=== PATIENT | male | born 1995 | race African-American/Black ===

== ENCOUNTER 2018-02-04 23:35 | Emergency (ER) | payer SELFPAY ==
[~2018-02-04] VITALS: Ht 182.9 cm; Wt 143.3 kg
[2018-02-04 23:51] VITALS: Ht 182.9 cm; Wt 143.3 kg
[2018-02-05 02:52] VITALS: BP 131/74
== END 2018-02-05 02:52 | disposition home or self-care (01) ==
LOC: ED 23:35
DX: R11.10 Vomiting, unspecified (principal); R19.7 Diarrhea, unspecified; J34.89 Other specified disorders of nose and nasal sinuses; R05 Cough; R10.32 Left lower quadrant pain; R51 Headache
CPT/HCPCS: Q0162

== ENCOUNTER 2018-05-13 12:20 | Emergency (ER) | payer SELFPAY ==
[~2018-05-13] VITALS: Ht 180.3 cm; Wt 144.2 kg
[2018-05-13 12:25] VITALS: Ht 180.3 cm; Wt 144.2 kg
[2018-05-13 13:26] VITALS: BP 155/92
== END 2018-05-13 13:26 | disposition home or self-care (01) ==
LOC: ED 12:20
DX: R10.9 Unspecified abdominal pain (principal); R11.10 Vomiting, unspecified; R19.7 Diarrhea, unspecified; E66.01 Morbid (severe) obesity due to excess calories

== ENCOUNTER 2018-05-16 07:24 | Emergency (ER) | payer SELFPAY ==
[~2018-05-16] VITALS: Ht 180.3 cm; Wt 145.6 kg
[2018-05-16 07:30] VITALS: Ht 180.3 cm; Wt 145.6 kg
[2018-05-16 08:09] LABS: BASOPHIL % 0.7 % (0-2); PLATELET COUNT 310 x10^3mcL (130-400)
[2018-05-16 08:25] LABS: CALCIUM 9.5 mg/dL (8.5-10.1); CARBON DIOXIDE 30.6 mmol/L (21-32); CHLORIDE SERUM 104 mmol/L (98-107); CREATININE SERUM 0.9 mg/dL (0.7-1.3); GFR1 > 60 mL/min; GLUCOSE SERUM 102 mg/dL (74-106); POTASSIUM SERUM 4.1 mmol/L (3.5-5.1); SODIUM SERUM 139 mmol/L (136-145)
[2018-05-16 08:27] LABS: ALBUMIN 3.6 g/dL (3.4-5.0); ALKALINE PHOSPHATASE 75 U/L (46-116); ALT/SGPT 18 U/L (16-63); AST/SGOT 20 U/L (15-37); BILIRUBIN TOTAL 0.22 mg/dL (0.20-1.00); LIPASE 57 IU/L (73-393); TOTAL PROTEIN, SERUM 7.9 g/dL (6.4-8.2)
[2018-05-16 09:08] VITALS: BP 131/75
== END 2018-05-16 09:09 | disposition home or self-care (01) ==
LOC: ED 07:24
PROVIDERS: Emergency Medicine
DX: R10.32 Left lower quadrant pain (principal); I10 Essential (primary) hypertension; R11.2 Nausea with vomiting, unspecified; R19.7 Diarrhea, unspecified
CPT/HCPCS: 36415; J1885; Q0162